=== PATIENT | male | born 1990 | race Caucasian/White ===

== ENCOUNTER 2016-11-25 10:15 | Emergency (ER) | payer MEDICAID ==
[~2016-11-25] VITALS: Wt 93.0 kg
[~2016-11-25 10:15] MED LIST: ACET325T33 PO; FAMO-18 PO
[2016-11-25] MEDS ORDERED: METOCLOPRAMIDE 10 MG INJ IV STA (12:27)
[2016-11-25] MEDS ORDERED: DIPHENHYDRAMINE 50 MG INJ IV STA (12:27)
[2016-11-25] MEDS ORDERED: SOD CHLORIDE 0.9% 1,000 ML IV ONE (13:00)
[2016-11-25 13:10] LABS: ADD SCAN DIFF NO
[2016-11-25 13:13] LABS: BASOPHIL # 0.1 10^3/ul (0.0-0.1); BASOPHILS % 0.7 % (0.0-2.0); EOSINOPHILS # 0.1 10^3/ul (0.0-0.5); EOSINOPHILS % 1.8 % (0.0-7.0); HEMATOCRIT 43.4 % (42.0-52.0); HEMOGLOBIN 14.5 g/dl (14.0-18.0); LYMPHOCYTES # 3.3 10^3/ul (0.8-2.9); LYMPHOCYTES % 46.4 % (15.0-51.0); MEAN CORPUSCULAR HGB CONC 33.4 g/dl (32.0-37.0); MEAN CORPUSCULAR VOLUME 86.8 fl (82.0-101.0); MEAN PLATELET VOLUME 9.9 fl (7.4-10.4); MONOCYTE # 0.6 10^3/ul (0.3-0.9); MONOCYTES % 8.2 % (0.0-11.0); NEUTROPHIL # 3.1 10^3/ul (1.6-7.5); NEUTROPHILS % 42.6 % (39.0-77.0); PLATELET COUNT 287 10^3/UL (140-415); RED CELL DISTRIBUTION WIDTH 12.2 % (11.5-14.5); WHITE BLOOD COUNT 7.2 10^3/ul (4.8-10.8)
[2016-11-25 13:23] LABS: ALBUMIN 4.2 g/dl (3.3-4.9)
[2016-11-25 13:24] LABS: POTASSIUM 3.9 mmol/L (3.5-5.1)
[2016-11-25 13:25] LABS: CREATININE 0.72 mg/dl (0.61-1.24); INR 0.94; PROTIME 12.6 Sec (12.2-14.2)
[2016-11-25 13:26] LABS: ALBUMIN/GLOBULIN RATIO 1.31; BILIRUBIN,INDIRECT 0.3 mg/dl (0-1.1); BILIRUBIN,TOTAL 0.3 mg/dl (0.2-1.3); CALCIUM 9.5 mg/dl (8.4-10.2); TOTAL PROTEIN 7.4 g/dl (6.1-8.1)
[2016-11-25] MEDS ORDERED: FIORICET PO (15:18)
[2016-11-25 15:38] VITALS: BP 142/87; PULSE 60; RESP 20; TEMP 98.9
--- NOTE | 2016-11-25 16:34 | ERD ---
ER Documentation Chief Complaint Date/Time DATE: 11/25/16 TIME: 16:28 Chief Complaint 10 DAYS OF HEADACHE WITH MILD DIZZINESS. NO NEURO DEFICIT HPI 26-year-old male with a past medical history of hypertension presents to the ED complaining of a headache located in the temporal region. States that sometimes it is in the frontal region and radiates to the back of his head. Describes the pain as pulsating and rates it a 8 out of 10. Reports that it was a sudden onset and gradually got better with intermittent episodes of pain. States that he has been taking Tylenol with relief of his pain. Denies any head or neck trauma. Denies any loss of consciousness. Denies any neck stiffness, neck pain, blurred vision, fever, chills, chest pain, shortness of breath, rashes. ROS All systems reviewed and are negative except as per history of present illness. Medications Home Meds Active Scripts Acetamin/Butalbital/Caffeine* (Fioricet*) [id number] Tab, 1 TAB PO Q6H Y for PAIN, #30 TAB Prov:JOSÉ MANUEL CABRERA PA-C 11/25/16 Acetaminophen* (Tylenol*) 325 Mg Tablet, 2 TAB PO Q8 Y for PAIN AND OR ELEVATED TEMP, #20 TAB Prov:CHAD MALDONADO PA-C 06/14/16 Famotidine* (Pepcid*) 20 Mg Tablet, 20 MG PO BID for 4 Days, #30 TAB Prov:CHAD MALDONADO PA-C 06/14/16 Allergies Allergies: Coded Allergies: No Known Allergy (Unverified , 06/14/16) PMhx/Soc History of Surgery: No Anesthesia Reaction: No Hx Neurological Disorder: No Hx Respiratory Disorders: No Hx Cardiac Disorders: Yes (htn) Hx Psychiatric Problems: No Hx Miscellaneous Medical Probl: No Hx Alcohol Use: Yes (occassionally) Hx Substance Use: No Hx Tobacco Use: No Physical Exam Vitals Vital Signs Date Time Temp Pulse Resp B/P Pulse Ox O2 Delivery O2 Flow Rate FiO2 11/25/16 15:38 98.9 60 20 142/87 100 Room Air 11/25/16 10:17 98.8 63 20 139/89 99 Physical Exam Const: [id number], well-nourished. In no acute distress. Head: Atraumatic, normocephalic Eyes: Normal Conjunctiva without injection. No purulent discharge. PERRLA. EOMI ENT: Normal external ear. Ear canal without erythema. Tympanic membrane pearly haynes without effusion or bulging. Nasal canal clear with normal turbinates. Moist oropharynx without tonsillar exudates. Non-erythematous pharynx. Uvula midline. No drooling. No trismus. Neck: No cervical midline tenderness. Full range of motion. No meningismus. No cervical lymphadenopathy. No JVD. Resp: Clear to auscultation bilaterally. No wheezing, rhonchi, rales, or crackles. No accessory muscle use. No retractions. Cardio: Regular rate and rhythm. No murmurs, rubs or gallops. Abd: Soft, non tender, non distended. Normal bowel sounds. No palpable masses. No rebound tenderness. No guarding. Negative McBurney's Point. Negative Law's Sign. Skin: Normal skin turgor. No petechiae or rashes Back: No midline tenderness. No CVA tenderness. Ext: No cyanosis, or edema. Distal pulses intact bilaterally. Neur: Awake and alert. Normal gait. Normal coordination. Cranial Nerves II- VII intact. Normal finger to nose. Muscle strength 5/5. Sensation intact. Psych: Normal Mood and Affect Result Diagram: 11/25/16 1250 11/25/16 1250 Results 24 hrs Laboratory Tests Test 11/25/16 12:50 Activated Partial Thromboplast Time 24.0Sec Alanine Aminotransferase (ALT/SGPT) 81IU/L Albumin 4.2g/dl Albumin/Globulin Ratio 1.31 Alkaline Phosphatase 80IU/L Anion Gap 17 Aspartate Amino Transf (AST/SGOT) 39IU/L Basophils # 0.110^3/ul Basophils % 0.7% Blood Urea Nitrogen 15mg/dl Calcium Level 9.5mg/dl Carbon Dioxide Level 29mmol/L Chloride Level 104mmol/L Creatinine 0.72mg/dl Direct Bilirubin 0.00mg/dl Eosinophils # 0.110^3/ul Eosinophils % 1.8% Globulin 3.20g/dl Glucose Level 90mg/dl Hematocrit 43.4% Hemoglobin 14.5g/dl INR International Normalized Ratio 0.94 Indirect Bilirubin 0.3mg/dl Lymphocytes # 3.310^3/ul Lymphocytes % 46.4% Mean Corpuscular Hemoglobin 29.0pg Mean Corpuscular Hemoglobin Concent 33.4g/dl Mean Corpuscular Volume 86.8fl Mean Platelet Volume 9.9fl Monocytes # 0.610^3/ul Monocytes % 8.2% Neutrophils # 3.110^3/ul Neutrophils % 42.6% Nucleated Red Blood Cells # 0.010^3/ul Nucleated Red Blood Cells % 0.0/100WBC Platelet Count 66285^3/UL Potassium Level 3.9mmol/L Prothrombin Time 12.6Sec Prothrombin Time Ratio 1.0 Red Blood Count 5.0010^6/ul Red Cell Distribution Width 12.2% Sodium Level 146mmol/L Total Bilirubin 0.3mg/dl Total Protein 7.4g/dl Troponin I < 0.012ng/ml White Blood Count 7.210^3/ul Current Medications Medications (Trade) Dose Ordered Sig/Christen Route PRN Reason Start Time Stop Time Status Last Admin Dose Admin Metoclopramide HCl (Reglan) 10 mg ONCE STAT IV 11/25/16 12:27 11/25/16 12:31 DC 11/25/16 12:56 Diphenhydramine HCl 25 mg 25 mg ONCE STAT IV 11/25/16 12:27 11/25/16 12:31 DC 11/25/16 12:56 Sodium Chloride (NS) 1,000 ml @ 1,000 mls/hr Q1H ONCE IV 11/25/16 13:00 11/25/16 13:59 DC 11/25/16 12:56 Procedures/MDM This is a 26-year-old male with a past medical history of hypertension presents the ED complaining of a headache that started 10 days ago associated with mild dizziness. Patient is afebrile nontoxic appearing. Patient has normal vital signs. EKG, CBC, CMP, was initially ordered to further evaluate patient. EKG reviewed and interpreted by Dr. Delvalle Rate/Rhythm: [65 bpm, Normal Sinus Rhythm] No ectopy, no ST elevations, normal axis. QRS, ST, T-waves: [Slight ST changes in V2,V3] Impression: [No evidence of ischemia or arrhythmia] EKG showed some slight ST elevations noted on the to V2,V3, therefore this case was discussed with my supervising physician, Dr. Delvalle with both agreed to further evaluate patient with a troponin, PT, PTT. Patient states that he feels better after being treated with 10 mg IV Reglan, 25 mg IV Benadryl, 1 L of normal saline. Low suspicion for acute atypical myocardial infarction, symptomatic anemia pneumothorax, pneumonia, cardiac tamponade, pulmonary embolism, AAA, aortic dissection, Boerhaave's syndrome, cardiac dysrhythmias, meningitis, intracranial bleed, seizure, stroke, TIA or other emergent conditions. This could be an incidental finding. Patient denies any chest pain , shortness of breath, dyspnea on exertion. Patient's headache could likely be due to a tension headache. Low suspicion for cluster headache, intracranial bleed, subarachnoid hemorrhage or other emergent conditions. Discharge medications: Fioricet Follow up with primary care physician in 1-2 days. Instructed patient to return to the ED sooner for any worsening symptoms. Patient's questions were answered. Patient understood and agreed with discharge plan. Patient discharged stable. Departure Diagnosis: Primary Impression: Headache Headache type: unspecified Headache chronicity pattern: unspecified pattern Intractability: not intractable Qualified Code: R51 - Nonintractable headache, unspecified chronicity pattern, unspecified headache type Condition: Stable Patient Instructions: Headache, Unspecified Referrals: [facility] YOU HAVE RECEIVED A MEDICAL SCREENING EXAM AND THE RESULTS INDICATE THAT YOU DO NOT HAVE A CONDITION THAT REQUIRES URGENT TREATMENT IN THE EMERGENCY DEPARTMENT. FURTHER EVALUATION AND TREATMENT OF YOUR CONDITION CAN WAIT UNTIL YOU ARE SEEN IN YOUR DOCTORS OFFICE WITHIN THE NEXT 1-2 DAYS. IT IS YOUR RESPONSIBILITY TO MAKE AN APPOINTMENT FOR FOLOW-UP CARE. IF YOU HAVE A PRIMARY DOCTOR --you should call your primary doctor and schedule an appointment IF YOU DO NOT HAVE A PRIMARY DOCTOR YOU CAN CALL OUR PHYSICIAN REFERRAL HOTLINE AT IF YOU CAN NOT AFFORD TO SEE A PHYSICIAN YOU CAN CHOSE FROM THE FOLLOWING [facility] [address] [facility]. [facility] [address] [facility]. [facility] [address] [facility] [facility] [address] [facility] [address] [facility] [address] [facility]. [facility] YOU HAVE RECEIVED A MEDICAL SCREENING EXAM AND THE RESULTS INDICATE THAT YOU DO NOT HAVE A CONDITION THAT REQUIRES URGENT TREATMENT IN THE EMERGENCY DEPARTMENT. FURTHER EVALUATION AND TREATMENT OF YOUR CONDITION CAN WAIT UNTIL YOU ARE SEEN IN YOUR DOCTORS OFFICE WITHIN THE NEXT 1-2 DAYS. IT IS YOUR RESPONSIBILITY TO MAKE AN APPOINTMENT FOR FOLOW-UP CARE. IF YOU HAVE A PRIMARY DOCTOR --you should call your primary doctor and schedule and appointment IF YOU DO NOT HAVE A PRIMARY DOCTOR YOU CAN CALL OUR PHYSICIAN REFERRAL HOTLINE AT . IF YOU CAN NOT AFFORD TO SEE A PHYSICIAN YOU CAN CHOSE FROM THE FOLLOWING [facility] INSTITUTIONS: [facility] [address] [place] [address] [facility] [address] [place], [place] [id number] [place] [address] [address] [place] [address] [facility] URGENT CARE/SPECIALTIES Additional Instructions: Llame al doctor MAANA y annie yao ARLENE PARA DENTRO DE 1-2 ALMODOVAR.Dgale a la secretaria que nosotros le instruimos hacer esta arlene.Avise o llame si rahman condicin se empeora antes de la arlene. Regresa aqui si peor o no mejor. JOSÉ MANUEL CABRERA PA-C Nov 25, 2016 16:33
== END 2016-11-25 15:39 | disposition home or self-care (01) ==
LOC: FTE 10:15
DX: R51 Headache (principal); I10 Essential (primary) hypertension
CPT/HCPCS: 36415; 80053; 84484; 85025; 85610; 85730; 93005; 96374; 96375; J1200; J2765; J7030; Z7502

== ENCOUNTER 2018-12-07 12:34 | Emergency (ER) | payer MEDICAID ==
[~2018-12-07] VITALS: Ht 160 cm; Wt 88.2 kg
[~2018-12-07 12:34] MED LIST changes: -FAMO-18 PO; +FAMO-96 PO; +FIORICET PO
[2018-12-07 12:43] VITALS: BP 163/94; PULSE 95; RESP 20; Ht 160 cm; Wt 88.2 kg
[2018-12-07] MEDS ORDERED: LIDOCAINE 1% (MPF) 5 ML VIAL INJ ONE (15:00)
[2018-12-07] MEDS ORDERED: OFLO5DRO7 LEFT EAR (15:23)
--- NOTE | 2018-12-07 15:29 | ERD ---
ER Documentation Chief Complaint Chief Complaint insect on R ear - still moving HPI 28-year-old male patient with no significant past medical history presents to the ED stating that he felt an insect move in his right ear. States that he noticed it earlier today. States that it is painful. Denies any nausea, vomi ting, diarrhea, neck stiffness. Patient reports he has not tried anything to remove the insect. Reports that it is also itchy. Denies any hearing loss, headache, dizziness, vision problems, fever. ROS All systems reviewed and are negative except as per history of present illness. Medications Home Meds Active Scripts Ofloxacin Otic (Ofloxacin Otic) 5 Ml Drops, 10 DROP LEFT EAR DAILY for 7 Days, #1 BOTTLE Prov:JOSÉ MANUEL CABRERA PA-C 12/07/18 Acetamin/Butalbital/Caffeine* (Fioricet*) [id number] Tab, 1 TAB PO Q6H PRN for PAIN, #30 TAB Prov:JOSÉ MANUEL CABRERA PA-C 11/25/16 Acetaminophen* (Tylenol*) 325 Mg Tablet, 2 TAB PO Q8 PRN for PAIN AND OR ELEVATED TEMP, #20 TAB Prov:CHAD MALDONADO PA-C 06/14/16 Famotidine* (Pepcid*) 20 Mg Tablet, 20 MG PO BID for 4 Days, #30 TAB Prov:CHAD MALDONADO PA-C 06/14/16 Allergies Allergies: Coded Allergies: No Known Allergy (Unverified , 06/14/16) PMhx/Soc History of Surgery: No Anesthesia Reaction: No Hx Neurological Disorder: No Hx Respiratory Disorders: No Hx Cardiac Disorders: Yes (htn) Hx Psychiatric Problems: No Hx Miscellaneous Medical Probl: No Hx Alcohol Use: Yes (occassionally) Hx Substance Use: No Hx Tobacco Use: No Smoking Status: Never smoker FmHx Family History: No diabetes, No coronary disease Physical Exam Vitals Vital Signs Date Temp Pulse Resp B/P (MAP) Pulse Ox O2 O2 Flow FiO2 Time Delivery Rate 12/07/18 98.5 95 20 163/94 98 12:43 (117) Physical Exam Const: Wms-juo-hilwyjvek, well-nourished. In no acute distress. Head: Atraumatic, normocephalic Eyes: Normal Conjunctiva without injection. No purulent discharge. PERRL. EOMI ENT: Normal external ear. Left Ear canal without erythema. Left Tympanic membrane pearly haynes without effusion or bulging. Nasal canal clear with normal turbinates. Moist oropharynx without tonsillar exudates. Non-erythematous pharynx. Uvula midline. No drooling. No trismus. Live insect noted in patient's right ear canal. Neck: Full range of motion. No meningismus. No cervical lymphadenopathy. Resp: Clear to auscultation bilaterally. No wheezing, rhonchi, rales, or crackles. No accessory muscle use. No retractions. Cardio: Regular rate and rhythm. No murmurs, rubs or gallops. Abd: Soft, non tender, non distended. Normal bowel sounds. No palpable masses. No rebound tenderness. No guarding. Skin: No petechiae or rashes Back: No midline tenderness. No CVA tenderness. Ext: No cyanosis, or edema. Neur: Awake and alert. Psych: Normal Mood and Affect Results 24 hrs Current Medications Medications Dose Sig/Christen Start Time Status Last (Trade) Ordered Route PRN Stop Time Admin Dose Reason Admin Lidocaine 5 ml ONCE ONCE 12/07/18 DC (Xylocaine INJ 15:00 1% (Mpf)) 12/07/18 15:01 Procedures/MDM 28-year-old male patient with no significant past medical history presents to ED complaining of an insect in his right ear canal. Patient is afebrile and nontoxic-appearing. 5 cc of 1% lidocaine was used to kill the insect of patient's right ear canal to prevent any burrowing for 10 minutes. Insect was removed from patient's right ear canal. Erythematous ear canal with no TM rup ture. Low suspicion for otitis externa or mastoiditis. Patient's physical exam include lungs which were clear to auscultation and a normal pulse oximetry. Patient is speaking in full sentences. There is a low suspicion for tympanic membrane rupture, pneumonia, epiglottitis, croup, viral/strep pharyngitis, sinusitis, peritonsillar abscess, retropharyngeal abscess, meningitis, sepsis, acute abdomen or other emergent conditions. Diagnosis: Foreign body of right ear Discharge medications: Ofloxacin drops Follow up with primary care physician in 1-2 days for a referral to see an ENT specialist if symptoms do not improve. Instructed patient to return to the ED sooner for any worsening symptoms. Patient's questions were answered. Patient is hemodynamically stable. Patient understood and agreed with discharge plan. Patient discharged stable. Disclaimer: Inadvertent spelling and grammatical errors are likely due to EHR/dictation software use and do not reflect on the overall quality of patient care. Also, please note that the electronic time recorded on this note does not necessarily reflect the actual time of the patient encounter. Departure Diagnosis: Primary Impression: Foreign body of right ear Encounter type: initial encounter Qualified Codes: T16.1XXA - Foreign body in right ear, initial encounter Condition: Stable Patient Instructions: Foreign Body, Ear Canal (Removed) Referrals: [facility] YOU HAVE RECEIVED A MEDICAL SCREENING EXAM AND THE RESULTS INDICATE THAT YOU DO NOT HAVE A CONDITION THAT REQUIRES URGENT TREATMENT IN THE EMERGENCY DEPARTMENT. FURTHER EVALUATION AND TREATMENT OF YOUR CONDITION CAN WAIT UNTIL YOU ARE SEEN IN YOUR DOCTORS OFFICE WITHIN THE NEXT 1-2 DAYS. IT IS YOUR RESPONSIBILITY TO MAKE AN APPOINTMENT FOR FOLOW-UP CARE. IF YOU HAVE A PRIMARY DOCTOR --you should call your primary doctor and schedule an appointment IF YOU DO NOT HAVE A PRIMARY DOCTOR YOU CAN CALL OUR PHYSICIAN REFERRAL HOTLINE AT IF YOU CAN NOT AFFORD TO SEE A PHYSICIAN YOU CAN CHOSE FROM THE FOLLOWING [facility] [address] [facility]. [facility] [address] [facility]. [facility] [address] [facility]. [facility] [address] [id number] [address] [facility]. [facility]. [address] [facility]. [facility] YOU HAVE RECEIVED A MEDICAL SCREENING EXAM AND THE RESULTS INDICATE THAT YOU DO NOT HAVE A CONDITION THAT REQUIRES URGENT TREATMENT IN THE EMERGENCY DEPARTMENT. FURTHER EVALUATION AND TREATMENT OF YOUR CONDITION CAN WAIT UNTIL YOU ARE SEEN IN YOUR DOCTORS OFFICE WITHIN THE NEXT 1-2 DAYS. IT IS YOUR RESPONSIBILITY TO MAKE AN APPOINTMENT FOR FOLOW-UP CARE. IF YOU HAVE A PRIMARY DOCTOR --you should call your primary doctor and schedule and appointment IF YOU DO NOT HAVE A PRIMARY DOCTOR YOU CAN CALL OUR PHYSICIAN REFERRAL HOTLINE AT . IF YOU CAN NOT AFFORD TO SEE A PHYSICIAN YOU CAN CHOSE FROM THE FOLLOWING [facility] INSTITUTIONS: [facility] [address] [place] [address] [facility] [address] [place] [address] [facility] [address] [place] [address] [facility] URGENT CARE/SPECIALTIES Additional Instructions: Llame al doctor MAANA y annie yao ARLENE PARA DENTRO DE 2-3 ALMODOVAR para yao derivacin a un especialista en [place] de nariz de odos si los sntomas no mejoran .Dgale a la secretaria que nosotros le instruimos hacer esta arlene.Avise o llame si rahman condicin se empeora antes de la arlene. Regresa aqui si peor o no mejor. JOSÉ MANUEL CABRERA PA-C Dec 07, 2018 15:29
== END 2018-12-07 15:43 | disposition home or self-care (01) ==
LOC: FTE 12:34
DX: T16.1XXA Foreign body in right ear, initial encounter (principal); X58.XXXA Exposure to other specified factors, initial encounter; Y92.9 Unspecified place or not applicable
CPT/HCPCS: Z7502; Z7610; 99283